=== PATIENT | male | born 1950 | race African-American/Black ===

== ENCOUNTER 2018-07-29 12:01 | Emergency (ER) | payer MEDICARE, MEDICAID ==
[2018-07-29] MEDS: HYDROCODONE/APAP (10/325) TAB PO (12:53)
[2018-07-29] MEDS: NYSTATIN SUSP 5 ML CUP PO (13:23)
== END 2018-07-29 14:53 | disposition home or self-care (01) ==
LOC: E/R 12:01
DX: S09.90XA Unspecified injury of head, initial encounter (principal); G89.29 Other chronic pain; R40.2142 Coma scale, eyes open, spontaneous, at arrival to emergency department; R40.2252 Coma scale, best verbal response, oriented, at arrival to emergency department; R40.2362 Coma scale, best motor response, obeys commands, at arrival to emergency department; R51 Headache; Y04.8XXA Assault by other bodily force, initial encounter; Z21 Asymptomatic human immunodeficiency virus [HIV] infection status
CPT/HCPCS: 70450; 99284-25

== ENCOUNTER 2018-11-09 03:50 | Emergency (ER) | payer MEDICARE, MEDICAID ==
[2018-11-09] MEDS: HYDROCODONE/APAP (10/325) TAB PO (04:50)
[2018-11-09] MEDS: DIPHENHYDRAMINE 50 MG INJ IV (07:22)
[2018-11-09] MEDS: METOCLOPRAMIDE 10 MG INJ IV (07:22)
[2018-11-09] MEDS: HYDROmorphONE 1 MG/ML SYG IV ×3 (07:22→14:51)
[2018-11-09] MEDS: ONDANSETRON 4 MG INJ IV ×2 (11:22→14:51)
== END 2018-11-09 15:04 | disposition home or self-care (01) ==
LOC: E/R 03:50
DX: R51 Headache (principal); Z21 Asymptomatic human immunodeficiency virus [HIV] infection status
CPT/HCPCS: 70450; 70480; 96374; 96375; 96376; 99285-25

== ENCOUNTER 2018-12-03 00:04 | Emergency (ER) | payer MEDICARE ==
[2018-12-03 01:54] LABS: ADD MAN DIFF? NO
[2018-12-03 01:57] LABS: BASOPHILS % 0.2 % (0.0-2.0); EOSINOPHILS # 0.1 10^3/ul (0.0-0.5); EOSINOPHILS % 1.2 % (0.0-7.0); HEMATOCRIT 31.1 % (42.0-52.0); HEMOGLOBIN 10.1 g/dl (14.0-18.0); LYMPHOCYTES # 0.9 10^3/ul (0.8-2.9); LYMPHOCYTES % 15.7 % (15.0-51.0); MEAN CORPUSCULAR HEMOGLOBIN 28.7 pg (29.0-33.0); MEAN CORPUSCULAR HGB CONC 32.5 g/dl (32.0-37.0); MEAN CORPUSCULAR VOLUME 88.4 fl (82.0-101.0); MONOCYTE # 0.4 10^3/ul (0.3-0.9); MONOCYTES % 7.3 % (0.0-11.0); NEUTROPHIL # 4.5 10^3/ul (1.6-7.5); NEUTROPHILS % 75.3 % (39.0-77.0); PLATELET COUNT 234 10^3/UL (140-415); RED BLOOD COUNT 3.52 10^6/ul (4.70-6.10); RED CELL DISTRIBUTION WIDTH 11.9 % (11.5-14.5)
[2018-12-03 02:04] LABS: ADD UMIC YES; UR ASCORBIC ACID NEGATIVE (NEGATIVE); UR BACTERIA FEW /HPF (NONE SEEN); UR BILIRUBIN (Dip) NEGATIVE (NEGATIVE); UR BLOOD (Dip) NEGATIVE (NEGATIVE); UR CLARITY SLIGHTLY CLOUDY (CLEAR); UR COLOR YELLOW (YELLOW); UR GLUCOSE (Dip) NEGATIVE (NEGATIVE); UR KETONES (Dip) TRACE mg/dL (NEGATIVE); UR LEUKOCYTE ESTERASE (Dip) TRACE Leu/ul (NEGATIVE); UR MUCUS FEW /HPF (NONE SEEN); UR NITRITE (Dip) NEGATIVE (NEGATIVE); UR RBC 2 /HPF (0-5); UR SPECIFIC GRAVITY (Dip) 1.018 (1.003-1.030); UR TOTAL PROTEIN (Dip) NEGATIVE (NEGATIVE); UR UROBILINOGEN (Dip) NEGATIVE (NEGATIVE); UR WBC 8 /HPF (0-5)
[2018-12-03 02:18] LABS: ALANINE AMINOTRANSFERASE 49 IU/L (13-69); ALBUMIN 3.7 g/dl (3.3-4.9); ALBUMIN/GLOBULIN RATIO 1.19; ALKALINE PHOSPHATASE 72 IU/L (42-121); ANION GAP 11 (5-13); ASPARTATE AMINO TRANSFERASE 60 IU/L (15-46); BILIRUBIN,INDIRECT 0.5 mg/dl (0-1.1); BILIRUBIN,TOTAL 0.5 mg/dl (0.2-1.3); BLOOD UREA NITROGEN 13 mg/dl (7-20); CARBON DIOXIDE 25 mmol/L (21-31); CHLORIDE 102 mmol/L (97-110); CREATININE 0.74 mg/dl (0.61-1.24); Estimated GFR > 60 mL/min (>60); GLUCOSE 98 mg/dl (70-220); POTASSIUM 3.1 mmol/L (3.5-5.1); SODIUM 138 mmol/L (135-144); TOTAL PROTEIN 6.8 g/dl (6.1-8.1)
[2018-12-03 02:29] LABS: TROPONIN-I 0.022 ng/ml (0.000-0.120)
[2018-12-03] MEDS ORDERED: DIPHENHYDRAMINE 50 MG INJ (03:51)
[2018-12-03] MEDS: DIPHENHYDRAMINE 50 MG INJ IV (03:55)
== END 2018-12-03 11:14 | disposition home or self-care (01) ==
LOC: E/R 00:04
DX: N39.0 Urinary tract infection, site not specified (principal); R42 Dizziness and giddiness
CPT/HCPCS: 80053; 81001; 84484; 85025; 87086; 93005; 96374; 99284-25

== ENCOUNTER 2019-01-04 22:10 | Emergency (ER) | payer MEDICARE ==
[2019-01-05] MEDS: HYDROCODONE/APAP (5/325) TAB PO (01:37)
[2019-01-05 02:02] LABS: ADD UMIC YES; UR AMORPHOUS CRYSTAL MODERATE /HPF (NONE SEEN); UR ASCORBIC ACID NEGATIVE (NEGATIVE); UR BACTERIA FEW /HPF (NONE SEEN); UR BILIRUBIN (Dip) NEGATIVE (NEGATIVE); UR BLOOD (Dip) NEGATIVE (NEGATIVE); UR CLARITY CLOUDY (CLEAR); UR COLOR YELLOW (YELLOW); UR GLUCOSE (Dip) NEGATIVE (NEGATIVE); UR KETONES (Dip) NEGATIVE (NEGATIVE); UR LEUKOCYTE ESTERASE (Dip) NEGATIVE Leu/ul (NEGATIVE); UR MUCUS FEW /HPF (NONE SEEN); UR NITRITE (Dip) NEGATIVE (NEGATIVE); UR RBC 0 /HPF (0-5); UR SPECIFIC GRAVITY (Dip) 1.018 (1.003-1.030); UR SQUAMOUS EPITHELIAL CELL FEW /HPF (FEW); UR TOTAL PROTEIN (Dip) NEGATIVE (NEGATIVE); UR UROBILINOGEN (Dip) 2+ mg/dL (NEGATIVE); UR WBC 0 /HPF (0-5)
== END 2019-01-05 03:52 | disposition home or self-care (01) ==
LOC: FTE 22:10
DX: N45.1 Epididymitis (principal); Z21 Asymptomatic human immunodeficiency virus [HIV] infection status
CPT/HCPCS: 76870; 81001; 87086; 99284-25